=== PATIENT | female | born 1995 | race Caucasian/White ===

== ENCOUNTER 2018-03-07 13:51 | Emergency (ER) | payer OTHER ==
[~2018-03-07] VITALS: Ht 162.6 cm; Wt 87.5 kg
[2018-03-07 13:58] VITALS: BP 125/65; Ht 162.6 cm; Wt 87.5 kg
== END 2018-03-07 14:32 | disposition home or self-care (01) ==
LOC: ED 13:51
DX: L03.114 Cellulitis of left upper limb (principal)